=== PATIENT | female | born 1970 | race Two or more races ===

== ENCOUNTER 2016-12-20 19:59 | Inpatient (IN) | payer MEDICAID ==
[~2016-12-20] VITALS: Ht 165.1 cm; Wt 108.0 kg
[2016-12-20] MEDS ORDERED: NKM (20:31)
--- NOTE | 2016-12-20 20:55 | Emergency Room Report ---
History of Present Illness General Chief Complaint: Chest Pain Source: Patient Present Illness HPI 46 yo F with no sig pmhx p/w chest pain for 2 hours. Localized to substernal area, no radiation to back or other areas, sharp in nature, gradual in onset, lasted 2 hours. Occurred at rest, + SOB. Denies palpitations, diaphoresis, n/v. This is the first occurrence of chest pain. Denies fever, chills, cough, abd pain. Denies trauma. Never had a stress test or cardiac catheterization. Denies smoking, no family history of cardiac disease at a young age. Patient denies any history of DVT or PE, no recent surgeries or immobilizations , does not take any medication, no OCPs Allergies: Coded Allergies: No Known Allergies (Unverified , 12/20/16) Patient History Past Medical History: see triage record Past Surgical History: none Pertinent Family History: none Last Menstrual Period: 12/13/16 Now: No Reviewed Nursing Documentation: PMH: Agreed, PSxH: Agreed Nursing Documentation-PMH Past Medical History: No History, Except For Review of Systems All Other Systems: negative except mentioned in HPI Physical Exam Vital Signs Date Time Temp Pulse Resp B/P (MAP) Pulse Ox O2 Delivery O2 Flow Rate FiO2 12/20/16 20:22 98.1 77 16 127/75 99 Room Air Sp02 EP Interpretation: reviewed, normal General Appearance: alert, GCS 15, non-toxic, moderate distress, other - Obese middle-aged female appears to be in pain Head: normocephalic, atraumatic Eyes: bilateral eye normal inspection, bilateral eye PERRL, bilateral eye EOMI ENT: normal ENT inspection, normal pharynx, normal voice, moist mucus membranes Neck: normal inspection, full range of motion, supple Respiratory: normal inspection, lungs clear, normal breath sounds, no respiratory distress, no retraction, no wheezing, speaking full sentences, chest symmetrical Cardiovascular #1: normal inspection, regular rate, rhythm, normal capillary refill Gastrointestinal: normal inspection, non tender, soft, non-distended, no guarding Musculoskeletal: normal inspection, back normal, normal range of motion, non- tender Neurologic: normal inspection, alert, oriented x3, responsive, motor strength/ tone normal, sensory intact, normal gait, speech normal Psychiatric: normal inspection, judgement/insight normal, memory normal Skin: normal inspection, normal color, no rash, warm/dry, well hydrated, normal turgor Medical Decision Making ER Course 46 yo F with no pmhx of p/w CP DDX: ACS vs. pneumonia vs. gastritis/GERD vs. pneumothorax PE on differential however at this time there are other more likely diagnoses. Plan: IV access, obtain labs including troponin, EKG, CXR ASA, pain control with nitro / morphine Anticipate admission ER course: Patient was treated with ASA. Patient has remained on a monitor, HD stable, chest pain improved. Disposition: Patient requires admission for chest pain. Given worrisome history, obesity, likely HTN/DM, no recent visit to a doctor, continues to have slight CP Patient requires admission for further workup, serial troponin, and possible stress test/cath inpatient. Please note that this Emergency Department Report was dictated using [employer] administrator technology software, occasionally this can lead to erroneous entry secondary to interpretation by the dictation equipment. Laboratory Tests Test 12/20/16 21:20 White Blood Count 7.4 K/UL (4.8-10.8) Red Blood Count 3.22 M/UL (4.20-5.40) L Hemoglobin 10.2 G/DL (12.0-16.0) L Hematocrit 30.1 % (37.0-47.0) L Mean Corpuscular Volume 94 FL (80-99) Mean Corpuscular Hemoglobin 31.7 PG (27.0-31.0) H Mean Corpuscular Hemoglobin Concent 33.9 G/DL (32.0-36.0) Red Cell Distribution Width 13.8 % (11.6-14.8) Platelet Count 303 K/UL (150-450) Mean Platelet Volume 5.8 FL (6.5-10.1) L Neutrophils (%) (Auto) 60.0 % (45.0-75.0) Lymphocytes (%) (Auto) 32.2 % (20.0-45.0) Monocytes (%) (Auto) 4.7 % (1.0-10.0) Eosinophils (%) (Auto) 2.2 % (0.0-3.0) Basophils (%) (Auto) 0.9 % (0.0-2.0) Sodium Level 138 mEQ/L (135-145) Potassium Level 3.8 mEQ/L (3.4-4.9) Chloride Level 99 mEQ/L (98-107) Carbon Dioxide Level 24 mEQ/L (20-30) Anion Gap 15 (5-15) Blood Urea Nitrogen 15 mg/dL (7-23) Creatinine 1.1 mg/dL (0.5-0.9) H Estimate Glomerular Filtration Rate 53.9 mL/min (>60) Glucose Level 147 mg/dL (74-106) H Calcium Level 8.9 mg/dL (8.6-10.2) Total Bilirubin < 0.2 mg/dL (0.0-1.2) Aspartate Amino Transferase (AST) 26 U/L (5-40) Alanine Aminotransferase (ALT) 18 U/L (3-33) Alkaline Phosphatase 117 U/L (35-104) H Total Creatine Kinase 339 U/L (26-140) H Creatine Kinase MB 4.2 ng/mL (< 3.8) H Creatine Kinase MB Relative Index 1.2 Troponin I < 0.30 ng/mL (<=0.30) Pro-B-Type Natriuretic Peptide 7 pg/mL (0-125) Total Protein 7.5 g/dL (6.6-8.7) Albumin 4.6 g/dL (3.5-5.2) Globulin 2.9 g/dL Albumin/Globulin Ratio 1.5 (1.0-2.7) EKG Diagnostic Results Rate: normal Rhythm: NSR ST Segments: other - Q waves I and aVL Rhythm Strip Diag. Results EP Interpretation: yes Rate: 70 Rhythm: NSR, no PVC's, no ectopy Chest X-Ray Diagnostic Results Chest X-Ray Diagnostic Results : Chest X-Ray Ordered: Yes # of Views/Limited/Complete: 1 View Indication: Chest Pain EP Interpretation: Yes Interpretation: no consolidation, no effusion, no pneumothorax, no acute cardiopulmonary disease Impression: No acute disease Interpreting ER Provider: Electronically signed by Ganesh Lewis MD Last Vital Signs Date Time Temp Pulse Resp B/P (MAP) Pulse Ox O2 Delivery O2 Flow Rate FiO2 12/20/16 20:22 98.1 77 16 127/75 99 Room Air Disposition: ADMITTED INPATIENT Condition: Serious Ganesh Lewis M.D. Dec 20, 2016 20:55
[2016-12-20 21:56] LABS: BASOPHILS % (AUTO) 0.9 % (0.0-2.0); EOSINOPHILS % (AUTO) 2.2 % (0.0-3.0); LYMPHOCYTES % (AUTO) 32.2 % (20.0-45.0); MEAN CORPUSCULAR HEMOGLOBIN 31.7 PG (27.0-31.0); MEAN CORPUSCULAR HGB CONC 33.9 G/DL (32.0-36.0); MEAN CORPUSCULAR VOLUME 94 FL (80-99); MEAN PLATELET VOLUME 5.8 FL (6.5-10.1); MONOCYTES % (AUTO) 4.7 % (1.0-10.0); PLATELET COUNT 303 K/UL (150-450); RED BLOOD COUNT 3.22 M/UL (4.20-5.40); RED CELL DISTRIBUTION WIDTH 13.8 % (11.6-14.8); WHITE BLOOD COUNT 7.4 K/UL (4.8-10.8)
[2016-12-20 22:13] LABS: TROPONIN I < 0.30 ng/mL (<=0.30)
[2016-12-20 22:16] LABS: ALANINE AMINOTRANSFERASE 18 U/L (3-33); ALBUMIN/GLOBULIN RATIO 1.5 (1.0-2.7); ANION GAP 15 (5-15); ASPARTATE AMINO TRANSFERASE 26 U/L (5-40); CALCIUM 8.9 mg/dL (8.6-10.2); CARBON DIOXIDE 24 mEQ/L (20-30); CHLORIDE 99 mEQ/L (98-107); CREATININE 1.1 mg/dL (0.5-0.9); GLOMERULAR FILTRATION RATE 53.9 mL/min (>60); HEMOLYSIS 5; POTASSIUM 3.8 mEQ/L (3.4-4.9); SODIUM 138 mEQ/L (135-145); TOTAL PROTEIN 7.5 g/dL (6.6-8.7)
[2016-12-20 22:27] LABS: CKMB 4.2 ng/mL (< 3.8)
[2016-12-20 22:40] VITALS: BP 127/58
[2016-12-21 00:32] VITALS: BP 127/62
[2016-12-21] MEDS ORDERED: DuoNeb 0.5-3(2.5)mg/3ml neb HHN PRN ×2 (04:45→22:47)
[2016-12-21] MEDS ORDERED: Morphine Sulfate 2mg/ml Inj IVP PRN ×2 (04:45→22:49)
[2016-12-21] MEDS ORDERED: Ketorolac 30mg Inj IV PRN (04:45)
[2016-12-21] MEDS ORDERED: Miralax 17gm pkt ORAL PRN ×2 (04:45→22:49)
[2016-12-21] MEDS ORDERED: Nitroglycerin Subl 0.4mg tab (Bottle Of 25) SL PRN ×2 (04:45→22:45)
[2016-12-21] MEDS ORDERED: Diltiazem 25mg/5ml IV PRN ×2 (04:45→22:45)
[2016-12-21] MEDS ORDERED: Enalaprilat 2.5mg/2ml Inj IV PRN ×2 (04:45→22:45)
[2016-12-21 07:50] VITALS: BP 128/89
--- NOTE | 2016-12-21 08:31 | Consultation ---
History of Present Illness General Date patient seen: Dec 21, 2016 Time patient seen: 07:50 Chief Complaint: Chest Pain Referring physician: dr Emanuel Reason for Consultation: inpatient management Present Illness HPI 46 yo female with PMH of hypothyroidism presented with c/o chest pain x 2 hours. Chest pain substernal, no radiation, sharp, gradual onset Chest pain started at rest, + SOB. Denied palpitations, diaphoresis, n/v. Denied fever, chills, cough, abd pain. Denied any trauma to chest wall Never had any cardiac workup Denied smoking, no family history of cardiac disease at a young age. Denied any history of DVT or PE, no recent surgeries or immobilizations, no hormonal therapy in ED VSS troponin negative ECG with NSR pro BNP -7 given ASA in ED admitted to r/o ACS patient complaining of chest pain x 2 days left arm numbness and left leg numbness along with it and leg edema Allergies: Coded Allergies: No Known Allergies (Unverified , 12/20/16) Medication History Scheduled No Known Medications* (NKM - No Known Medications*), 0 ., (Reported) Patient History History Provided By: Patient Healthcare decision maker Resuscitation status Full Code Advanced Directive on File Past Medical/Surgical History Past Medical/Surgical History: (1) Hypothyroidism Review of Systems Constitutional: Reports: weakness Eye: Reports: no symptoms ENT: Reports: no symptoms Respiratory: Reports: no symptoms Cardiovascular: Reports: see HPI Gastrointestinal: Reports: no symptoms Genitourinary: Reports: no symptoms Musculoskeletal: Reports: no symptoms Psychiatric: Reports: no symptoms Neurological: Reports: no symptoms Endocrine: Reports: other - hypothyroidism Hematologic/Lymphatic: Reports: no symptoms Physical Exam General Appearance: alert - A/A/O x 4 , morbidly obese Lines, tubes and drains: peripheral HEENT: normocephalic, atraumatic, anicteric, PERRL Neck: supple Respiratory/Chest: lungs clear - with moderate ar exchange , other - CW on the left TTP, Cardiovascular/Chest: normal rate, regular rhythm, other - edema + 2 BLE Abdomen: normal bowel sounds, non tender, soft - obese Extremities: normal range of motion, normal inspection, normal capillary refill , other - +2 BLE edema Neurologic: no motor/sensory deficits, alert, oriented x 3, responsive Musculoskeletal: normal muscle bulk Last 24 Hour Vital Signs Date Time Temp Pulse Resp B/P (MAP) Pulse Ox O2 Delivery O2 Flow Rate FiO2 12/21/16 07:50 96.9 70 18 128/89 100 Room Air 12/21/16 04:00 66 12/21/16 01:30 97.5 72 17 127/62 100 Room Air 12/21/16 00:32 72 17 127/62 100 Room Air 12/20/16 22:40 97.5 72 20 127/58 100 Room Air 12/20/16 20:25 77 16 Room Air 12/20/16 20:22 98.1 77 16 127/75 99 Room Air Laboratory Tests Test 12/20/16 21:20 White Blood Count 7.4 K/UL (4.8-10.8) Red Blood Count 3.22 M/UL (4.20-5.40) L Hemoglobin 10.2 G/DL (12.0-16.0) L Hematocrit 30.1 % (37.0-47.0) L Mean Corpuscular Volume 94 FL (80-99) Mean Corpuscular Hemoglobin 31.7 PG (27.0-31.0) H Mean Corpuscular Hemoglobin Concent 33.9 G/DL (32.0-36.0) Red Cell Distribution Width 13.8 % (11.6-14.8) Platelet Count 303 K/UL (150-450) Mean Platelet Volume 5.8 FL (6.5-10.1) L Neutrophils (%) (Auto) 60.0 % (45.0-75.0) Lymphocytes (%) (Auto) 32.2 % (20.0-45.0) Monocytes (%) (Auto) 4.7 % (1.0-10.0) Eosinophils (%) (Auto) 2.2 % (0.0-3.0) Basophils (%) (Auto) 0.9 % (0.0-2.0) Sodium Level 138 mEQ/L (135-145) Potassium Level 3.8 mEQ/L (3.4-4.9) Chloride Level 99 mEQ/L (98-107) Carbon Dioxide Level 24 mEQ/L (20-30) Anion Gap 15 (5-15) Blood Urea Nitrogen 15 mg/dL (7-23) Creatinine 1.1 mg/dL (0.5-0.9) H Estimat Glomerular Filtration Rate 53.9 mL/min (>60) Glucose Level 147 mg/dL (74-106) H Calcium Level 8.9 mg/dL (8.6-10.2) Total Bilirubin < 0.2 mg/dL (0.0-1.2) Aspartate Amino Transf (AST/SGOT) 26 U/L (5-40) Alanine Aminotransferase (ALT/SGPT) 18 U/L (3-33) Alkaline Phosphatase 117 U/L (35-104) H Total Creatine Kinase 339 U/L (26-140) H Creatine Kinase MB 4.2 ng/mL (< 3.8) H Creatine Kinase MB Relative Index 1.2 Troponin I < 0.30 ng/mL (<=0.30) Pro-B-Type Natriuretic Peptide 7 pg/mL (0-125) Total Protein 7.5 g/dL (6.6-8.7) Albumin 4.6 g/dL (3.5-5.2) Globulin 2.9 g/dL Albumin/Globulin Ratio 1.5 (1.0-2.7) Height (Feet): 5 Height (Inches): 5.00 Weight (Pounds): 238 Medications Current Medications Medications (Trade) Dose Ordered Sig/Aung Route PRN Reason Start Time Stop Time Status Last Admin Dose Admin Acetaminophen (Tylenol) 650 mg Q4H PRN ORAL FEVER 12/21/16 04:45 01/20/17 04:44 Albuterol/ Ipratropium (DuoNeb 0.5-3(2.5)mg/3ml) 3 ml Q4H PRN HHN Shortness of Breath 12/21/16 04:45 12/26/16 04:44 Aspirin (ASA) 162 mg DAILY ORAL 12/21/16 09:00 01/20/17 08:59 Diltiazem HCl (Cardizem) 10 mg Q1H PRN IV heart rate more than 120, 12/21/16 04:45 01/20/17 04:44 Enalaprilat (Vasotec) 2.5 mg Q6H PRN IV sbp more than 160 12/21/16 04:45 01/20/17 04:44 Heparin Sodium (Porcine) (Heparin 5000 units/ml) 5,000 units EVERY 12 HOURS SUBQ 12/21/16 09:00 01/20/17 08:59 Ketorolac Tromethamine (Toradol 30mg) 30 mg Q6HR PRN IV moderate pain ( 4-6) 12/21/16 04:45 12/26/16 04:44 UNV Morphine Sulfate (Morphine Sulfate) 2 mg Q4H PRN IVP severe Pain (Pain Scale 7-10) 12/21/16 04:45 12/28/16 04:44 Nitroglycerin (Ntg) 0.4 mg Q5M PRN SL Prn Chest Pain 12/21/16 04:45 01/20/17 04:44 Ondansetron HCl (Zofran) 4 mg Q6H PRN IVP Nausea & Vomiting 12/21/16 04:45 01/20/17 04:44 Pantoprazole (Protonix) 40 mg DAILY ORAL 12/21/16 09:00 01/20/17 08:59 Polyethylene Glycol (Miralax) 17 gm DAILYPRN PRN ORAL Constipation 12/21/16 04:45 01/20/17 04:44 Temazepam (Restoril) 15 mg HSPRN PRN ORAL Insomnia 12/21/16 04:45 12/28/16 04:44 Assessment/Plan Assessment/Plan ASSESSMENT chest pain /chest wall pain r/o ACS possible costochondritis hypothyroidism Left side numbness PLAN OF CARE tele serial troponin ECG cardio eval ECHO check lipid panel and TSH started on ASA pain management with Nitro and Morphine prn chest pain / cehst wall pain, reproducible on palpation, likely of musculoskeletal origin, possibly costochondritis, but will wait for serial troponin and cardio eval O2 HHN prn CT head due to L sided numbness DVT, GI prophylaxis case discussed and evaluated by supervising physician Jim Conde)Janae NP Dec 21, 2016 08:31
--- NOTE | 2016-12-21 08:46 | Diagnostic Imaging Report ---
Indication: Chest pain Comparison: None A single view chest radiograph was obtained. Findings: Cardiomediastinal appearance is within normal limits for age. Pulmonary vascularity is appropriate. The diaphragmatic contour is smooth and costophrenic angles are sharp. No pleural effusions are identified. The bones are unremarkable. Impression: No acute findings
[2016-12-21] MEDS ORDERED: Aspirin Baby 81mg ORAL SCH (09:00)
[2016-12-21] MEDS: Heparin 5000 units/ml inj SUBQ SCH ×2 (10:14→20:24)
[2016-12-21 11:28] VITALS: BP 119/59
[2016-12-21 11:29] LABS: TROPONIN I < 0.30 ng/mL (<=0.30)
[2016-12-21 15:49] VITALS: BP 137/56
[2016-12-21 19:47] VITALS: BP 132/79
[2016-12-21 23:14] VITALS: BP 119/79
--- NOTE | 2016-12-22 02:45 | History and Physical Report ---
DATE OF ADMISSION: 12/20/2016 TIME SEEN: At 9 a.m. CONSULTANTS: 1. Sade Huff M.D. 2. Marcus Rosas M.D. CHIEF COMPLAINT: Chest pain. BRIEF HISTORY: This is a 46-year-old female, who lives at home, presented with substernal chest pain, sharp x1 day, slightly better now. The patient diagnosed with the above, admitted to telemetry for further care. Currently, calm in bed, slight chest pain. No complaints. PAST MEDICAL HISTORY: Possible hypothyroid. PAST SURGICAL HISTORY: None. MEDICATIONS: Include aspirin, Protonix, heparin, DuoNeb, nitroglycerin, Tylenol, Toradol, morphine, MiraLAX, Restoril, Vasotec, and Cardizem. ALLERGIES: Denies. SOCIAL HISTORY: No smoking, no alcohol, and no intravenous drug abuse. FAMILY HISTORY: Noncontributory. REVIEW OF SYSTEMS: Slight chest pain. Slightly short of breath. No nausea, vomiting, or diarrhea. PHYSICAL EXAMINATION: GENERAL: Calm in bed, oriented x3, and in no acute distress. VITAL SIGNS: Temperature is 96 degrees, pulse 70, respirations 18, and blood pressure 120/89. CARDIOVASCULAR: No murmurs. LUNGS: . ABDOMEN: Positive bowel sounds. Nontender and nondistended. EXTREMITIES: No cyanosis, clubbing, or edema. NEUROLOGIC: The patient moves all extremities, but slightly weak. LABORATORY DATA: Lab exam shows hemoglobin 10.2, otherwise CBC is normal. BMP show creatinine 1.1 and glucose 147. Troponin is less than 0.3. ASSESSMENT: 1. Chest pain. 2. Possible hypothyroid. PLAN: 1. Continue premedications. 2. Cardiology followup, Dr. Rosas, and Dr. Huff, Pulmonary. 3. Troponin q.8 x3. 4. EKG in the morning. 5. O2 and pulmonary treatment as needed. 6. CBC and BMP in the morning. 7. We will continue to follow this patient. Kain Emanuel D.O. DR: JONES JOB#: [id number] CC:
[2016-12-22 04:00] VITALS: BP 119/62
--- NOTE | 2016-12-22 06:55 | General Progress Note ---
Assessment/Plan Problem List: (1) Chest pain ICD Codes: R07.9 - Chest pain, unspecified SNOMED: 80683855 (2) Hypothyroidism ICD Codes: E03.9 - Hypothyroidism, unspecified SNOMED: 25935971 Status: stable, progressing, tolerating diet Assessment/Plan dc if clear by cardio and pulm Subjective Constitutional: Reports: weakness Allergies: Coded Allergies: No Known Allergies (Unverified , 12/20/16) All Systems: reviewed and negative except above Subjective calm in bed Objective Last 24 Hour Vital Signs Date Time Temp Pulse Resp B/P (MAP) Pulse Ox O2 Delivery O2 Flow Rate FiO2 12/22/16 04:00 96.8 72 17 119/62 100 Room Air 12/21/16 23:14 97.2 71 16 119/79 97 Room Air 12/21/16 20:00 76 12/21/16 19:47 98.2 79 20 132/79 98 Room Air 12/21/16 19:39 78 18 Room Air 12/21/16 16:00 72 12/21/16 15:49 97.9 77 18 137/56 98 Room Air 12/21/16 12:00 69 12/21/16 11:28 97.1 72 18 119/59 99 Room Air 12/21/16 08:00 71 12/21/16 07:50 96.9 70 18 128/89 100 Room Air 12/21/16 07:30 70 18 Room Air Laboratory Tests 12/21/16 10:15: Troponin I < 0.30 Height (Feet): 5 Height (Inches): 5.00 Weight (Pounds): 238 General Appearance: alert EENT: normal ENT inspection Neck: normal alignment Cardiovascular: normal peripheral pulses, normal rate, regular rhythm Respiratory/Chest: chest wall non-tender, lungs clear, normal breath sounds Abdomen: normal bowel sounds, non tender, soft Extremities: normal inspection Edema: no edema noted Arm (L), no edema noted Arm (R), no edema noted Leg (L), no edema noted Leg (R), no edema noted Pedal (L), no edema noted Pedal (R), no edema noted Generalized Neurologic: responsive, motor weakness Skin: normal pigmentation, warm/dry ROLANDO MORTON Dec 22, 2016 06:55
--- NOTE | 2016-12-22 07:24 | Pulmonology Progress Note ---
Assessment/Plan Assessment/Plan ASSESSMENT chest pain /chest wall pain possibly costochondritis hypothyroidism with elevated TSH hyperlipidemia, mixed PLAN OF CARE transferred to [place] serial troponin negative ECG no acute ischemic changes patient was r/o for acute MS ECHO with EF 55% and RVSP of 17, lipid panel and TSH for this am pending started on ASA cardio eval noted chest pain possibly of musculoskeletal origin chest pain was reproducible on palpation of chest wall, currently resolved pain management with NSAIDs O2 HHN prn DVT, GI prophylaxis no numbness on the left side of the body, will cancel CT head ADDENDUM ( AFTER LABS BECOME AVAILABLE) : elevated TSH , thyroid replacement, upon discussion with the patient- patient is not taking any thyroid supplement, will star on low dose -25 mcg and fup wth TSH check in 1 month start Fish oil, hold TriCor or statin ( elevated CK) educated on low fat low cholesterol diet fup with PMD for TSH, CK ( in 1 month) and lipid panel check ADDENDUM: patient came to [facility] to [facility] prescriptions, written by me for Synthroid and Fish oil on 12/23 ar 1030 am case discussed and evaluated by supervising physician Subjective Allergies: Coded Allergies: No Known Allergies (Unverified , 12/20/16) Subjective transferred to [facility] all cardiac w/up negative no chest pain, no SOB , no dizziness denies any numbness on the left side of the body as reported yesterday cardio cleared for dc Objective Last 24 Hour Vital Signs Date Time Temp Pulse Resp B/P (MAP) Pulse Ox O2 Delivery O2 Flow Rate FiO2 12/22/16 04:00 96.8 72 17 119/62 100 Room Air 12/21/16 23:14 97.2 71 16 119/79 97 Room Air 12/21/16 20:00 76 12/21/16 19:47 98.2 79 20 132/79 98 Room Air 12/21/16 19:39 78 18 Room Air 12/21/16 16:00 72 12/21/16 15:49 97.9 77 18 137/56 98 Room Air 12/21/16 12:00 69 12/21/16 11:28 97.1 72 18 119/59 99 Room Air 12/21/16 08:00 71 12/21/16 07:50 96.9 70 18 128/89 100 Room Air 12/21/16 07:30 70 18 Room Air Objective General Appearance: A/A/O x 4 , morbidly obese HEENT: normocephalic, atraumatic, anicteric, PERRL Neck: supple Respiratory/Chest: lungs clear - with moderate air exchange Cardiovascular/Chest: normal rate, regular rhythm, other - edema + 2 BLE Abdomen: normal bowel sounds, non tender, soft - obese Extremities: normal range of motion, normal inspection, normal capillary refill , +1 BLE edema Neurologic: no motor/sensory deficits, alert, oriented x 3, responsive Musculoskeletal: normal muscle bulk Laboratory Tests 12/21/16 10:15: Troponin I < 0.30 Current Medications Medications (Trade) Dose Ordered Sig/Aung Route PRN Reason Start Time Stop Time Status Last Admin Dose Admin Acetaminophen (Tylenol) 650 mg Q4H PRN ORAL FEVER 12/21/16 22:46 01/20/17 22:45 Albuterol/ Ipratropium (DuoNeb 0.5-3(2.5)mg/3ml) 3 ml Q4H PRN HHN Shortness of Breath 12/21/16 22:47 12/26/16 22:46 Aspirin (ASA) 162 mg DAILY ORAL 12/22/16 09:00 01/20/17 08:59 Diltiazem HCl (Cardizem) 10 mg Q1H PRN IV heart rate more than 120, 12/21/16 22:45 01/20/17 04:44 UNV Enalaprilat (Vasotec) 2.5 mg Q6H PRN IV sbp more than 160 12/21/16 22:45 01/20/17 04:44 Heparin Sodium (Porcine) (Heparin 5000 units/ml) 5,000 units EVERY 12 HOURS SUBQ 12/22/16 09:00 01/20/17 08:59 Morphine Sulfate (Morphine Sulfate) 2 mg Q4H PRN IVP severe Pain (Pain Scale 7-10) 12/21/16 22:49 12/28/16 22:48 Nitroglycerin (Ntg) 0.4 mg Q5M PRN SL Prn Chest Pain 12/21/16 22:45 01/20/17 04:44 Ondansetron HCl (Zofran) 4 mg Q6H PRN IVP Nausea & Vomiting 12/21/16 22:45 01/20/17 04:44 Pantoprazole (Protonix) 40 mg DAILY ORAL 12/22/16 09:00 01/20/17 08:59 Polyethylene Glycol (Miralax) 17 gm DAILYPRN PRN ORAL Constipation 12/21/16 22:49 01/20/17 22:48 Temazepam (Restoril) 15 mg HSPRN PRN ORAL Insomnia 12/21/16 22:49 12/28/16 22:48 Jim [facility] Rubio NP Dec 22, 2016 07:24
[2016-12-22 07:51] LABS: BASOPHILS % (AUTO) 0.9 % (0.0-2.0); EOSINOPHILS % (AUTO) 2.4 % (0.0-3.0); LYMPHOCYTES % (AUTO) 26.2 % (20.0-45.0); MEAN CORPUSCULAR HEMOGLOBIN 31.6 PG (27.0-31.0); MEAN CORPUSCULAR HGB CONC 33.4 G/DL (32.0-36.0); MEAN CORPUSCULAR VOLUME 95 FL (80-99); MEAN PLATELET VOLUME 5.9 FL (6.5-10.1); MONOCYTES % (AUTO) 3.4 % (1.0-10.0); NEUTROPHILS % (AUTO) 67.1 % (45.0-75.0); PLATELET COUNT 317 K/UL (150-450); RED BLOOD COUNT 3.32 M/UL (4.20-5.40); RED CELL DISTRIBUTION WIDTH 13.7 % (11.6-14.8); WHITE BLOOD COUNT 6.4 K/UL (4.8-10.8)
[2016-12-22 07:55] LABS: ANION GAP 13 (5-15); CALCIUM 8.9 mg/dL (8.6-10.2); CARBON DIOXIDE 27 mEQ/L (20-30); CHLORIDE 100 mEQ/L (98-107); CREATININE 0.9 mg/dL (0.5-0.9); GLOMERULAR FILTRATION RATE > 60 mL/min (>60); HEMOLYSIS 4; POTASSIUM 4.4 mEQ/L (3.4-4.9); SODIUM 140 mEQ/L (135-145)
[2016-12-22 07:56] LABS: INR 0.9 (0.9-1.1); PROTHROMBIN TIME 9.4 SEC (9.30-11.50)
[2016-12-22 08:00] VITALS: BP 123/62
[2016-12-22 08:02] LABS: TROPONIN I < 0.30 ng/mL (<=0.30)
[2016-12-22 08:05] LABS: CHOLESTEROL/HDL RATIO 9.3 (3.3-4.4); CRP QUANT 0.8 mg/dL (< 0.5)
[2016-12-22] MEDS ORDERED: Heparin 5000 units/ml inj SUBQ SCH (09:00)
[2016-12-22] MEDS ORDERED: Aspirin Baby 81mg ORAL SCH (09:00)
--- NOTE | 2016-12-22 09:15 | Consultation ---
DATE OF CONSULTATION: 12/21/2016 CARDIOLOGY CONSULTATION REFERRING PHYSICIAN: Kain Emanuel D.O. REASON FOR CONSULTATION: Management of chest pain. HISTORY OF PRESENT ILLNESS: The patient is a very unfortunate 46-year-old female, who presents to the hospital with chest pain that has been going on for about two hours, described as substernal, sharp, and nonradiating. She did not have any associated shortness of breath, but she claims that she has shortness of breath with long distance walking. Denied any diaphoresis, nausea, or vomiting. She denies any prior history of coronary artery disease, congestive heart failure, or cardiac arrhythmia. On arrival to the emergency department, 12-lead electrocardiogram showed normal sinus rhythm with no evidence of ischemia. ProBNP level was negative, acute myocardial function was ruled out. The patient was, however, admitted to telemetry for further evaluation and assessment. Risk factors for coronary artery disease is 0. PAST MEDICAL HISTORY: Hypothyroidism. ALLERGIES: No known drug allergies. MEDICATIONS: List of medication, no medications. She might take thyroid supplementation, which is not addressed. FAMILY HISTORY: No premature coronary artery disease in first-degree relatives. SOCIAL HISTORY: The patient denies any tobacco, alcohol, or illicit drug use. REVIEW OF SYSTEMS: A 12-system review done essentially negative except what mentioned in the history of present illness. PHYSICAL EXAMINATION: VITAL SIGNS: At the time of arrival to the emergency department, blood pressure was 127/75, respirations 16, pulse 77, and temperature 98.1 degrees Fahrenheit. O2 saturation is 99% on room air. GENERAL: The patient is a very pleasant 46-year-old obese female, in no apparent respiratory distress. HEENT: Atraumatic and normocephalic. Pupils are equal, round, and reactive to light and accommodation. Extraocular muscles intact. NECK: JVP is less than 5 cm. No carotid bruit. Carotid upstrokes 2+ bilaterally. CARDIOVASCULAR: Normal S1 and S2. Regular rate and rhythm. No murmurs, gallops, or rubs. PMI is at fourth intercostal space at the midclavicular line. LUNGS: Clear to auscultation bilaterally. ABDOMEN: Soft, nontender, and nondistended. No hepatosplenomegaly. Positive bowel sounds. EXTREMITIES: No evidence of edema, clubbing, or cyanosis. DIAGNOSTIC DATA: A 12-lead electrocardiogram shows sinus rhythm at a rate of 75. There is arm-lead reversal that caused the Q-wave appearance in leads I and aVL. This is not lateral wall infarct. The ECG needed to be repeated. There is no acute ST and T-wave abnormalities. 2-D echocardiography showed completely normal LV systolic and diastolic function. No wall motion abnormalities. LVEF of 55%. Normal right ventricular systolic pressure measured at 17 mmHg. Chest x-ray showed no acute cardiopulmonary disease. LABORATORY DATA: Sodium 138, potassium 3.8, chloride 99, bicarbonate 24, BUN 15, and creatinine 1.1. Glucose is 147. Calcium is 8.9. Troponin I x2 negative. ProBNP is 7. WBC 7.4, hemoglobin 10.2, hematocrit 30.1, and platelet count 303,000. ASSESSMENT AND PLAN: The patient is a very pleasant 46-year-old female with: 1. Most likely noncardiac chest pain, likelihood of coronary artery disease in this patient is low. No inpatient stress test is required. The patient may require a treadmill stress test if this is recurrent. 2. History of hypothyroidism. I would like to thank Dr. Emanuel for allowing me to participate in the care of this patient. Marcus Rosas M.D. DR: BRAYAN JOB#: [id number] CC:
--- NOTE | 2016-12-22 22:48 | Cardiology Progress Note ---
Assessment/Plan Assessment/Plan 1. Most likely noncardiac chest pain, likelihood of coronary artery disease in this patient is low. recommend outpatient stress testing. 2D echo shows normal LV wall motion, LVEF of 55%. No ischemic features on the ECG. Trops are all negative. BNP is also normal suggestive of low possibility for ischemia. 2. History of hypothyroidism. Subjective Subjective Transferred to non-telemetry bed. Objective Last 24 Hour Vital Signs Date Time Temp Pulse Resp B/P (MAP) Pulse Ox O2 Delivery O2 Flow Rate FiO2 12/22/16 08:00 98.2 80 20 123/62 100 Room Air 12/22/16 04:00 96.8 72 17 119/62 100 Room Air 12/21/16 23:14 97.2 71 16 119/79 97 Room Air Intake and Output 12/22/16 12/23/16 19:00 07:00 Intake Total 240 ml Balance 240 ml Intake Oral 240 ml 2D Echo: LVEF 55%, mild LVH, RVSP 17 mmHg Laboratory Tests Test 12/22/16 05:30 White Blood Count 6.4 K/UL (4.8-10.8) Red Blood Count 3.32 M/UL (4.20-5.40) L Hemoglobin 10.5 G/DL (12.0-16.0) L Hematocrit 31.4 % (37.0-47.0) L Mean Corpuscular Volume 95 FL (80-99) Mean Corpuscular Hemoglobin 31.6 PG (27.0-31.0) H Mean Corpuscular Hemoglobin Concent 33.4 G/DL (32.0-36.0) Red Cell Distribution Width 13.7 % (11.6-14.8) Platelet Count 317 K/UL (150-450) Mean Platelet Volume 5.9 FL (6.5-10.1) L Neutrophils (%) (Auto) 67.1 % (45.0-75.0) Lymphocytes (%) (Auto) 26.2 % (20.0-45.0) Monocytes (%) (Auto) 3.4 % (1.0-10.0) Eosinophils (%) (Auto) 2.4 % (0.0-3.0) Basophils (%) (Auto) 0.9 % (0.0-2.0) Prothrombin Time 9.4 SEC (9.30-11.50) Prothromb Time International Ratio 0.9 (0.9-1.1) Activated Partial Thromboplast Time 27 SEC (23-33) Sodium Level 140 mEQ/L (135-145) Potassium Level 4.4 mEQ/L (3.4-4.9) Chloride Level 100 mEQ/L (98-107) Carbon Dioxide Level 27 mEQ/L (20-30) Anion Gap 13 (5-15) Blood Urea Nitrogen 14 mg/dL (7-23) Creatinine 0.9 mg/dL (0.5-0.9) Estimat Glomerular Filtration Rate > 60 mL/min (>60) Glucose Level 108 mg/dL (74-106) H Calcium Level 8.9 mg/dL (8.6-10.2) Troponin I < 0.30 ng/mL (<=0.30) C-Reactive Protein, Quantitative 0.8 mg/dL (< 0.5) H Triglycerides Level 625 mg/dL (< 150) H Cholesterol Level 224 mg/dL (< 200) H LDL Cholesterol 75 mg/dL (60-99) HDL Cholesterol 24 mg/dL (> 60) Cholesterol/HDL Ratio 9.3 (3.3-4.4) H Thyroid Stimulating Hormone (TSH) 151.000 uIU/mL (0.300-4.500) Objective HEENT: Atraumatic and normocephalic. Pupils are equal, round, and reactive to light and accommodation. Extraocular muscles intact. NECK: JVP is less than 5 cm. No carotid bruit. Carotid upstrokes 2+ bilaterally. CARDIOVASCULAR: Normal S1 and S2. Regular rate and rhythm. No murmurs, gallops, or rubs. PMI is at fourth intercostal space at the midclavicular line. LUNGS: Clear to auscultation bilaterally. ABDOMEN: Soft, nontender, and nondistended. No hepatosplenomegaly. Positive bowel sounds. EXTREMITIES: No evidence of edema, clubbing, or cyanosis. PAUL VALVERDE Dec 22, 2016 22:48
[2016-12-24] MEDS ORDERED: FISH OIL CAP1000 MG ORAL (09:52)
[2016-12-24] MEDS ORDERED: SYNTHROID25 MCG ORAL (09:52)
[2016-12-24] MEDS ORDERED: ATORVASTATIN CA10 MG ORAL (09:52)
--- NOTE | 2016-12-24 10:06 | Discharge Summary ---
Discharge Summary Hospital Course Date of Admission Dec 20, 2016 at 22:38 Date of Discharge Dec 22, 2016 at 10:30 Admitting Diagnosis chest pain HPI Summer Saini is a 46 year old female who was admitted on Dec 20, 2016 at 22:38 for Chest Pain Hospital Course DC SUMMARY #[id number] Discharge Medications New Medications: Fish Oil (Fish Oil 1,000 mg Capsule) 1 Each Capsule 1000 MG ORAL DAILY, #30 CAP Levothyroxine Sodium* (Synthroid*) 25 Mcg Tablet 25 MCG ORAL DAILY, #30 TAB Take in the morning on an empty stomach, at least 30 minutes before food. Discontinued Medications: No Known Medications* (NKM - No Known Medications*) . 0 ., 0 Refills Discharge Condition Upon Discharge: stable Discharge Disposition Patient was discharged to Home (01) Discharge Diagnoses: Jim ([place]),Janae WONG Dec 24, 2016 10:06
--- NOTE | 2016-12-24 12:38 | Cardiology Report ---
APPROVED REPORT EXAM: Two-dimensional and M-mode echocardiogram with Doppler and color Doppler. INDICATION Left Ventricular Function M-Mode DIMENSIONS IVSd1.4 (0.7-1.1cm)Left Atrium (MM)3.6 (1.6-4.0cm) LVDd3.1 (3.5-5.6cm)Aortic Root2.7 (2.0-3.7cm) PWd1.2 (0.7-1.1cm)Aortic Cusp Exc.2.2 (1.5-2.0cm) LVDs1.9 (2.5-4.0cm) PWs1.8 cm Normal left ventricular chamber size, systolic function and wall motion. Left ventricular ejection fraction estimated to be 55 -60%. Mild left ventricular hypertrophy. Anterior Echo-free space, may be due to pericardial fat or effusion. All other cardiac chamber sizes are within normal limits. Normal appearing aortic, mitral, puImonic and tricuspid valves. Mild mitral annulus and aortic root calcification. Subcostal views not obtained due to poor acoustic windows. A color flow and spectral Doppler study was performed and revealed: No aortic regurgitation. No mitral regurgitation. Mitral inflow velocities indicates normal left ventricular diastolic function. Mild tricuspid regurgitation. Tricuspid systolic velocities suggests peak right ventricular systolic pressure of 17 mmHg. No pulmonic regurgitation present.
--- NOTE | 2016-12-24 15:38 | Cardiology Report ---
APPROVED REPORT EKG Measurement Heart [id number] PA 180P [id number] Suspect arm lead reversal, interpretation assumes no reversal Normal sinus rhythm Low voltage QRS Lateral infarct, age undetermined Inferior infarct, age undetermined Abnormal ECG
--- NOTE | 2016-12-25 09:16 | Discharge Summary 2 SIG ---
DATE OF ADMISSION: 12/20/2016 DATE OF DISCHARGE: 12/22/2016 REASON FOR ADMISSION: 46-year-old female with a history of hypothyroidism, presented with chest pain for two hours. Chest pain was substernal, nonradiating, and sharp with gradual onset. Chest pain started at rest. Also reported shortness of breath. She denied palpitation, diaphoresis, nausea, vomiting, fever, chills, cough, or abdominal pain. She denied any trauma to chest wall and never had any cardiac workup. She denied smoking. No family history of cardiac disease at young age. She denied any history of DVT or PE. No recent surgery or embolization. No hormonal therapy. In the emergency room, vital signs were stable. Troponin negative. EKG revealed normal sinus rhythm.Pro BNP - 7. Aspirin was given in the emergency department. The patient was admitted to rule out acute coronary syndrome. ADMITTING DIAGNOSES: 1. Chest pain, 2. Possible acute coronary syndrome and p 3. Possible costochondritis. 4. Hypothyroidism. HOSPITAL COURSE: The patient was admitted to telemetry floor. Serial troponin were negative. EKG revealed no acute ischemic changes. Cardiology evaluation requested. Echocardiogram revealed preserved ejection fracture of 55%, mild left ventricular hypertrophy, and right ventricular systolic pressure of 17. The patient was ruled out for acute [place]. Initial chest pain was reproducible on palpation of chest wall, currently resolved. Chest pain noncardiac, likely secondary to costochondritis. Per landscape specialist, chest pain was noncardiac. Likelihood of coronary artery disease in this patient was low. No inpatient stress test was required. The patient may require treadmill stress test, if chest pain will recur. Lipid panel revealed elevated triglycerides at 625, elevated total cholesterol 224, and TSH of 151. The patient was not taking any thyroid replacement for a long time. Patient was started on low dose of Synthroid. Follow up in 1 month with primary medical doctor for thyroid function test and further dosing of Synthroid as needed. CK was elevated. Hold statin for now. Added Fish oil. Patient was educated on low fat low cholesterol diet. Check CK in 1 month, if WNL, start statin and /or Gemfibrozil as per PMD discretion ( recheck lipid panel prior). The patient was stable for discharge. Follow up with the primary medical doctor in one month to check TSH and CK as well as the lipid panel. DISCHARGE DIAGNOSES: 1. Chest pain 2. Possibly costochondritis. 3. Hypothyroidism with elevated TSH. 4. Mixed hyperlipidemia. DISCHARGE MEDICATIONS: See medication reconciliation list. DISCHARGE INSTRUCTIONS: The patient was discharged home. Follow up with the primary medical doctor in one month. Kain Emanuel D.O. Janae AmbroseStony Brook Southampton HospitalRamiro NDavidPDavid DR: Walter JOB#: [id number] CC: ISA
== END 2016-12-22 10:30 | disposition home or self-care (01) | DRG 203 ==
LOC: EMR 22:23 → 2E 22:38 → EDBEDREQ 12-21 00:31 → 3E 12-21 22:16
DX: M94.0 Chondrocostal junction syndrome [Tietze] (principal); E66.01 Morbid (severe) obesity due to excess calories; R07.89 Other chest pain; E03.9 Hypothyroidism, unspecified; R20.0 Anesthesia of skin; E78.2 Mixed hyperlipidemia
CPT/HCPCS: 36415; 71010; 80048; 80053; 80061; 82550; 82553; 83880; 84443; 84484; 85025; 85610; 85730; 86140; 93005; 93306; 94664; 99285